=== PATIENT | female | born 1960 | race Caucasian/White ===

== ENCOUNTER → 2016-12-15 08:55 | Outpatient (CLI) | payer OTHER | END | disposition home or self-care (01) | LOC: D.ECHO 08:55 | DX: R06.00 Dyspnea, unspecified (principal) ==

== ENCOUNTER → 2017-01-06 06:52 | Outpatient (CLI) | payer OTHER ==
--- NOTE | ~2017-01-06 | HEMODYNAMI ---
PATIENT:BALBINA BARROS MEDICAL RECORD: [id number] : 56 LOCATION:[facility] ADMISSION DATE: 01/06/17 Generatedon:01/06/201712:17 Patient name: BALBINA BARROS Patient #: [id number] SSN: : 1960 Date of study: 01/06/2017 Page: Of Hemodynamic Procedure Report Patient Data Patient Demographics Procedure consent was obtained First Name: BALBINA Gender: Female Last Name: : 1960 PAPO Age: 56 year(s) Middle Initial: NUPUR Race: Unknown Patient #: [id number] Additional ID: [id number] Contact details Address: [address] [place] [address] State: [place] City: [place] Zip code: [address] Past Medical History Allergies Allergen Reaction Date Comments Reported Other allergy 01/06/2017 N Admission Admission Data Admission Date: 01/06/2017 Admission Time: 6:52 Admit Source: Other Lab Results Lab Result Date: 01/06/2017 Lab Result Time: 7:43 Biochemistry Name Units Result Min Max BUN mg/dl 13 --(--*-)-- 7 18 Creatinine mg/dl 0.7 --(*---)-- 0.6 1.3 CBC Name Units Result Min Max Hematocrit % 45.4 --(-*--)-- 42 54 Hemoglobin g/dl 15 --(-*--)-- 13.5 17.5 Procedure Procedure Types Cath Procedure Diagnostic Procedure LHC LHC w/Coronaries Peripheral Cath Diagnostic Procedure Procedure Description Procedure Date Procedure Date: 01/06/2017 Procedure Start Time: 12:02 Procedure End Time: 12:14 Procedure Staff Name Function Eloina Veloz RT Monitor Akshat Jimenez RN Nurse Shay Carrasco RT Scrub Nazario Katz MD Performing Physician Procedure Data Cath Procedure Fluoroscopy Diagnostic fluoroscopy Total fluoroscopy Time: 1.1 time: 1.1 min min Diagnostic fluoroscopy Total fluoroscopy dose: 88 dose: 88 mGy mGy Contrast Material Contrast Material Type Amount (ml) Isovue 300 48 Entry Location Entry Primary Successful Side Size Upsize Upsize Entry Closure Succes sful Closure Location (Fr) 1 (Fr) 2 (Fr) Remarks Device Remarks Femoral Right 5 Fr Exoseal artery Estimated blood loss: 5 ml Diagnostic catheters Device Type Used For End Catheter Placement Cordis 5Fr JL 4.0 Left Coronary Catheter (MP) Angiography Cordis 5Fr 3DRC Catheter Right Coronary (MP) Angiography Cordis 5Fr Pigtail LV Angiography Catheter (MP) Procedure Complications No complications Procedure Medications Medication Administration Route Dosage Oxygen NC 2 l/min Heparin Flush Bag added to field 2 bags (1000units/500ml NS) 0.9% NaCl I.V. 100 ml/hr Fentanyl I.V. 50 mcg Versed I.V. 1 mg Versed I.V. 1 mg Hemodynamics Rest HGB: 15 (g/dl) Heart Rate: 77 (bpm) Pressure Samples Time Site Value (mmHg) Purpose Heart Use Rate(bpm) 12:10 LV 131/-4,20 EDP 86 12:11 AO 112/74(92) Pullback 87 12:11 LV 108/16,17 Pullback 87 Gradients Valve Time Site 1 Site 2 Mean SEP/DFP Peak To Heart Use (mmHg) (sec/min) Peak Rate (mmHg) (bpm) Aortic 12:11 LV AO 0 13 0 87 108/16,17 112/74(92) Calculations Valve P-P Mean Valve Index Valve Source Name Gradient Area Flow (cm2) Aortic 0 0 0 0 Snapshots Pre Cath Intra NCS Post Cath Vital Signs Time Heart Resp SPO2 etCO2 NIBP Rhythm Pain Sedation Rate (ipm) (%) (mmHg) (mmHg) Status Level (bpm) 11:47:22 76 17 96 0 118/71(98) NSR 0 (11) 10(A) , No pain 11:51:36 75 16 97 0 121/69(99) NSR 0 (11) 10(A) , No pain 11:55:50 76 16 96 0 120/71(88) NSR 0 (11) 10(A) , No pain 12:00:11 84 16 91 0 117/67(95) NSR 0 (11) 10(A) , No pain 12:04:24 83 18 94 0 122/77(94) NSR 0 (11) 9(A) , No pain 12:08:40 86 18 94 0 114/76(93) NSR 0 (11) 9(A) , No pain 12:12:52 87 18 94 0 117/76(97) NSR 0 (11) 9(A) , No pain Medications Time Medication Route Dose Verified Delivered Reason Notes Effec tiveness by by 11:54:19 Oxygen NC 2 Nazario Akshat Per l/min Sterling Jimenez RN physician 11:54:29 Heparin Flush added 2 Nazario Akshat used for Bag to bags Sterling Jimenez RN procedure (1000units/500ml field NS) 11:54:43 0.9% NaCl I.V. 100 Nazario Akshat Per ml/hr Sterling Jimenez RN physician 12:00:42 Fentanyl I.V. 50 Nazario Akshat for mcg Sterling Jimenez RN sedation 12:00:50 Versed I.V. 1 mg Nazario Akshat for Sterling Jimenez RN sedation 12:04:41 Versed I.V. 1 mg Nazario Akshat for Sterling Jimenez RN sedation Procedure Log Time Note 10:30:51 Informed consent obtained and on chart 10:31:13 Admit Source: Other 10:31:15 Diagnostic Cath status Elective 10:31:22 Time tracking: Regular hours 10:31:26 Plan of Care:Hemodynamics will remain stable., Cardiac rhythm will remain stable., Comfort level will be maintained., Respiratory function will remain adequate., Patient/ family verbilizes understanding of procedure., Procedure tolerated without complication., Recovers from procedure without complications.. 10:32:02 H&P Date Dictated: 12/31/2016 Within 30 days and on chart., H&P Addendum completed by physician on day of procedure. (MUST COMPLETE FOR ALL OUTPATIENTS). 10:41:55 Full Disclosure recording started 10:42:14 Procedure type changed to Cath procedure, Diagnostic procedure, LHC, LHC w/Coronaries, Peripheral Cath Diagnostic Procedure 11:25:08 Full Disclosure recording stopped 11:29:20 Eloina Veloz RT(R) sent for patient. Start room use. 11:33:10 Lab Result : Creatinine 0.7 mg/dl 11:33:10 Lab Result : BUN 13 mg/dl 11:33:10 Lab Result : Hemoglobin 15 g/dl 11:33:10 Lab Result : Hematocrit 45.4 % 11:33:16 Lab results completed and on chart. 11:33:29 Patient allergic to Other allergyPCN 11:38:09 Patient received from Pre/Post Procedure Room to CCL 3 Alert and oriented. Tansferred to table in Supine position. 11:38:12 Warm blankets applied, and sotero hugger turned on for patient comfort. 11:38:22 Correct patient and procedure confirmed by team. 11:39:02 ECG and BP/O2 sat monitors applied to patient. 11:39:41 Pre-procedure instructions explained to patient. 11:39:41 Pre-op teaching completed and patient verbalized understanding. 11:39:43 Family in waiting room. 11:39:45 Patient NPO since Midnight. 11:39:47 Is the patient allergic to Iodine/contrast media? No. 11:46:12 Vital chart was started 11:46:16 Rhythm: sinus rhythm 11:46:16 Full Disclosure recording started 11:46:21 Is patient on blood thinner?Yes 11:46:28 Patient diabetic? No. 11:46:33 Previous problem with sedation/anesthesia? No ? 11:46:34 Snore? Yes 11:46:35 Sleep apnea? Yes 11:46:36 Deviated septum? No 11:46:36 Opens mouth fully? Yes 11:46:37 Sticks out tongue? Yes 11:46:41 Airway obstruction? Yes Asthma 11:46:45 Dentures? No ? 11:46:49 Pre procedure: right dorsailis pedis pulse 2+ Normal; easily identifiable; not easily obliterated 11:46:51 Modified Seth's test Ulnar > 7 seconds. 11:46:54 Patient pain scale 0/10 ?. 11:47:00 IV patent on arrival in left hand with 0.9% NaCl at [facility]. 11:47:08 Right groin area was prepped with chlora-prep and draped in sterile fashion 11:47:09 Alarms reviewed by R. N. 11:47:09 Sharps counted by scrub and verified by R.N. 11:47:12 Use device set Femoral Dx 11:47:13 Acist Syringe opened to sterile field. 11:47:13 Bag Decanter opened to sterile field. 11:47:14 Medline Cath Pack opened to sterile field. 11:47:14 Terumo 5Fr Plymouth Sheath opened to sterile field. 11:47:15 St Dick 260cm J .035 wire opened to sterile field. 11:47:16 Acist Hand Control opened to sterile field. 11:47:16 Acist Manifold opened to sterile field. 11:47:17 Diagnostic Infinity 5Fr Multipack catheter opened to sterile field. 11:47:17 Tegaderm 4 x 4 opened to sterile field. 11:52:35 Baseline sample Acquired. 11:52:58 Final Timeout: patient, procedure, and site verified with staff and physician. All members of the team are in agreement. 11:53:00 Right groin site verified by team. 11:53:41 Physical assessment completed. ASA score P 2 - A patient with mild systemic disease as per Nazario Katz MD. 11:53:43 Sedation plan: IV Moderate Sedation Versed, Fentanyl 11:54:19 Oxygen 2 l/min NC was administered by Akshat Jimenez RN; Per physician; 11:54:29 Heparin Flush Bag (1000units/500ml NS) 2 bags added to field was administered by Akshat Jimenez RN; used for procedure; 11:54:43 0.9% NaCl 100 ml/hr I.V. was administered by Akshat Jimenez RN; Per physician; 12:00:42 Fentanyl 50 mcg I.V. was administered by Akshat Jimenez RN; for sedation; 12:00:50 Versed 1 mg I.V. was administered by Akshat Jimenez RN; for sedation; 12:02:43 Local anesthetic to right femoral artery with Lidocaine 2% by Nazario Katz MD.INITIAL ACCESS ONLY 12:04:07 Access obtained with 4Fr micropunture. 12:04:41 Versed 1 mg I.V. was administered by Akshat Jimenez RN; for sedation; 12:04:42 A 5 Fr sheath was inserted into the Right Femoral artery 12:05:28 A Cordis 5Fr JL 4.0 Catheter (MP) was advanced over the wire and used for Left Coronary Angiography. 12:07:21 Catheter removed. 12:07:42 A Cordis 5Fr 3DRC Catheter (MP) was advanced over the wire and used for Right Coronary Angiography. 12:09:12 Catheter removed. 12:09:17 A Cordis 5Fr Pigtail Catheter (MP) was advanced over the wire and used for LV Angiography. 12:10:56 LV gram done using MACK 12:10:57 LV hemodynamics recorded. 12:11:00 Injector settings: Ml/sec: 12, Volume: 8, 12:11:24 Catheter removed. 12:11:34 Sheath removed intact; hemostasis achieved with Exoseal to the Right Femoral artery. 12:11:37 Procedure ended.(Physican Out) 12:11:57 Fluoroscopy time 01.10 minutes. 12:12:05 Flurop Dose total: 88 12:12:05 Fluoroscopy dose: 88 mGy 12:12:18 Contrast amount:Isovue 300 48ml. 12:12:19 Sharps counted by scrub and verified by R.N. 12:12:22 Insertion/operative site no bleeding no hematoma. 12:12:35 Post right femoral artery:stable, clean and dry 12:12:58 Post Procedure Pulses reassessed and unchanged 12:13:02 Post-procedure physical assessment completed. ASA score P 2 - A patient with mild systemic disease as per Nazario Katz MD. 12:13:05 Post procedure rhythm: unchanged. 12:13:08 Estimated blood loss: 5 ml 12:13:09 Post procedure instruction explained to patient.Patient verbalizes understanding. 12:13:10 Patient needs reinforcement of post procedure teaching. 12:13:14 Procedure Complication : No complications 12:13:17 See physician's report for complete and final results. 12:14:03 Cordis 5Fr Exoseal opened to sterile field. 12:14:26 Cook 4Fr Micropuncture ([id number]) opened to sterile field. 12:14:33 Procedure and supply charges have been captured, reviewed, submitted and are correct. 12:14:52 Vital chart was stopped 12:14:55 Report given to Pre/Post Procedure Room. 12:14:57 Patient transfered to Pre/Post Procedure Room with Stretcher. 12:14:59 Procedure ended. 12:14:59 Full Disclosure recording stopped 12:15:05 End room use (Document Last) Device Usage Item Name Manufacture Quantity Catalog Hospital Part Current Minimal Lot# / Number Charge Number Stock Stock Serial# Code Acist Syringe Acist 1 61223 210242 054085 447305 20 [employer] Bag Decanter Microtek 1 2001S 243776 43198 020825 5 [employer] Medline Cath Cardinal 1 [id number] 193321 52126 490401 5 Pack Health Terumo 5Fr Terumo 1 [id number] 861353 718176 605065 [address] Dick [address] St Dick 1 937297 024221 314505 975387 30 J .035 wire Acist Hand Acist 1 55990 688029 708609 454914 5 Control [employer] Inc Acist Acist 1 93701 576514 854763 071153 5 Manifold [employer] Inc Diagnostic Cardinal 1 WI1292 932531 37114 800718 30 Infinity 5Fr Health Multipack catheter Tegaderm 4 x 3M 1 1626W 930346 411119 548221 5 4 Cordis 5Fr JL Cardinal 1 [id number] 5 4.0 Catheter Health (MP) Cordis 5Fr Cardinal 1 157714 5 3DRC Catheter Health (MP) Cordis 5Fr Cardinal 1 986153 5 Pigtail Health Catheter (MP) Cordis 5Fr Cardinal 1 EX500 980932 989183 363710 10 ExosCOINLAB Health Cook 4Fr [facility] 1 [id number] 951164 009397 252030 5 Micropuncture ([id number]) Signature Audit [place] Stage Time Signature Unsigned Intra-Procedure 01/06/2017 Eloina 12:17:54 PM Counts RT(R) Signatures Monitor : Eloina Signature : Counts RT Date : Time : [id number] [place] [address]
[~2017-01-06 06:52] MED LIST: CYMBALTA20 MG PO; ZOCOR20 MG PO
[2017-01-06 07:35] VITALS: BP 123/68; BMI 30.9
[2017-01-06 07:46] LABS: BASOPHILS 0.4 % (0-2); EOSINOPHILS 2.4 % (0-7); HEMATOCRIT 45.4 % (36.0-48.0); IMMATURE GRANULOCYTES 0.6 % (0-5); LYMPHOCYTES 31.2 % (15-50); MCH 28.1 pg (26.0-34.0); MCV 85.2 fL (80.0-100.0); MEAN PLATELET VOLUME 11.1 fL (7.4-10.4); MONOCYTES 8.4 % (2-11); PLATELET COUNT 254 10x3/uL (130-400); RBC 5.33 10x6/uL (4.00-5.40); RDW 14.1 % (11.5-14.5); WBC 9.1 10x3/uL (4.8-10.8)
[2017-01-06 07:56] LABS: CALC OSMOLALITY 279 mosm/kg (275-300); CALCIUM 8.6 mg/dL (8.5-10.1); CARBON DIOXIDE 24.9 mmol/L (21.0-32.0); CHLORIDE - SERUM 104 mmol/L (98-107); CREATININE - SERUM 0.7 mg/dL (0.6-1.3); GLUCOSE 165 mg/dL (74-106); POTASSIUM - SERUM 3.9 mmol/L (3.5-5.1); SODIUM 138 mmol/L (136-145); UREA NITROGEN 13 mg/dL (7-18); eGFR NON AFRICAN AMERICAN > 90 mL/min (90-120)
--- NOTE | 2017-01-06 12:30 | NUR ---
1230 RECIEVED TO ROOM VIA STRETCHER FROM TECHNICAL SERVICES REP WITH REPORTS OF A CLEAN CATH NO INTERVENTION DONE AT THIS TIME. 5 FR EXOSEAL R/GROIN CDI NO BLEEDING NO HEMATOMA NOTED. VSS WITH NO DISTRESS 1245 R/GROIN REMAINS CDI NO BLEEDING NO HEMATOMA NOTED INSTRUCTED PATIENT TO KEEP HEAD FLAT ON PILLOW WITH RLE STRAIGHT
--- NOTE | 2017-01-06 12:57 | NUR ---
5 FR EXOSEAL R/GROIN CDI NO BLEEDING NO HEMATOMA NOTED. VSS WITH PAIN AND NEEDS DENIED. FAMILY AT BEDSIDE. INSTRUCTED PATIENT TO KEEP HEAD FLAT ON PILLOW WITH RLE STRAIGHT
--- NOTE | 2017-01-06 13:18 | NUR ---
5 FR EXOSEAL R/GROIN CDI NO BLEEDING NO HEMATOMA NOTED. VSS WITH CHEST PAIN DENIED. FAMILY IS AT BEDSIDE
--- NOTE | 2017-01-06 13:39 | NUR ---
RESTING QUIETLY WITH NO DISTRESS NOTED. R/GROIN CDI NO BLEEDING NO HEMATOMA NOTED VSS
--- NOTE | 2017-01-06 14:00 | NUR ---
1400 REPOSITIONED TO SITTING WITH HOB UP 45 DEGREES R/GROIN CDI NO BLEEDING NO HEMATOMA NOTED. VSS WITH PAIN DENIED
--- NOTE | 2017-01-06 14:17 | NUR ---
PIV REMOVED WITH DRESSING APPLIED. R/GROIN REMAINS CDI NO BLEEDING NO HEMATOMA NOTED. PATIENT UP TO GET DRESSED FOR DISCHARGE HOME NO DISTRESS
--- NOTE | 2017-01-06 14:34 | NUR ---
VERBAL AND WRITTEN DISCHARGE GONE OVER WITH PATIENT AND . R/GROIN REMAINS CDI NO DISTRESS OR COMPLAINTS. LEFT VIA WC TO PARKING FOR TO DRIVE HOME
== END | disposition home or self-care (01) ==
LOC: D.CATH 06:52
PROVIDERS: Internal Medicine Cardiovascular Disease
DX: R00.2 Palpitations (principal); R07.9 Chest pain, unspecified; R94.30 Abnormal result of cardiovascular function study, unspecified; R06.02 Shortness of breath; E78.5 Hyperlipidemia, unspecified; R42 Dizziness and giddiness; E11.9 Type 2 diabetes mellitus without complications; Z01.812 Encounter for preprocedural laboratory examination

== ENCOUNTER → 2017-11-18 13:49 | Outpatient (CLI) | payer OTHER ==
[2017-01-06 07:35] VITALS: BMI 30.9
== END | disposition home or self-care (01) ==
LOC: D.CT 13:49
DX: R10.32 Left lower quadrant pain (principal)

== ENCOUNTER → 2018-08-19 08:24 | Outpatient (CLI) | payer OTHER ==
[2017-01-06 07:35] VITALS: BMI 30.9
== END | disposition home or self-care (01) ==
LOC: D.CT 08:24
PROVIDERS: ATTEND Emergency Medicine
DX: R19.09 Other intra-abdominal and pelvic swelling, mass and lump (principal)